=== PATIENT | female | born 1995 | race Caucasian/White ===

== ENCOUNTER 2017-04-16 22:05 | Emergency (ER) | payer MEDICAID, OTHER ==
[2017-04-16 22:39] LABS: Hematocrit 38.3 % (37.0-47.0); Hemoglobin 12.7 gm/dL (12.5-16.0); Mean Cell Volume 85.7 fl (78-100); Mean Corpuscular Hemoglobin 28.4 pg (27-31); Mean Corpuscular Hgb Conc 33.2 g/dl (32-36); Mean Platelet Volume 9.6 fl (6.0-9.5); Neutrophil % 70.3 % (42-75.0); Platelet Count 298 K/mm3 (150-450); Red Blood Count 4.47 M/mm3 (4.2-5.4); Red Cell Distribution Width 13.6 % (11.5-14.0); White Blood Count 18.4 K/mm3 (4.0-10.5)
--- NOTE | 2017-04-16 22:43 | ERNOTE ---
ER Female HPI Stated Complaint: 15 WEEKS - PELVIC PAIN Presenting Symptoms: pelvic pain, vaginal bleeding - "a little more than spotting yesterday, nothing today" Time Seen by Provider: 04/16/17 22:20 Source: patient Exam Limitations: no limitations Immunizations: IMMUNIZATION HX Immunizations Up to Date Yes History of Influenza Vaccine Yes Hx Pneumococcal Vaccination No Allergies/Adverse Reactions: Allergies red dye Allergy (Severe, Verified 09/19/15 10:14) sulfamethoxazole [From Bactrim] Allergy (Severe, Verified 09/19/15 10:14) Anaphylaxis trimethoprim [From Bactrim] Allergy (Severe, Verified 09/19/15 10:14) Anaphylaxis albuterol Allergy (Mild, Verified 04/16/17 22:12) Swelling (Other) sucrose Allergy (Verified 09/19/15 10:14) bleached flour Adverse Reaction (Intermediate, Uncoded 09/19/15 10:14) Nausea Home Medications: HOME MEDICATIONS Cephalexin [Keflex] 500 mg PO QID #40 capsule 04/16/17 [Last Taken Unknown] - History of Present Illness Narrative: G2 P1 presents at 15 wk GA with pelvic pain and back pain Timing: Present: constant Quality: Present: moderate Onset Location: Present: RLQ, LLQ, suprapubic Radiation: Present: back Activities at Onset: Present: none Review of Systems - Review of Systems Constitutional: Present: no symptoms reported EYE: Present: no symptoms reported ENT: Present: no symptoms reported Respiratory: Present: no symptoms reported Gastrointestinal/Abdominal: Absent: nausea, vomiting Genitourinary: Absent: dysuria Musculoskeletal: Present: back pain Skin: Present: no symptoms reported Neurological: Present: no symptoms reported Endocrine: Present: no symptoms reported Hematologic/Lymphatic: Present: no symptoms reported Psych: Present: no symptoms reported - Patient's Past Medical History Patient History - Medical: No pertinent hx Patient History - Cardiac/Respiratory: No pertinent hx Patient History - Cancer: Skin Patient History - Surgical Procedures: T & A Patient History - Other: None LMP (females 10-50): - 15 weeks, - Social History Living Situations: home Abuse History: No History of abuse Psych History: No pertinent hx Does anyone smoke in the home?: Yes Smoking Status: Never smoker Alcohol Use: none Drug Use: none - Immunizations Immunizations Up to Date: Yes Hx Pneumococcal Vaccination: No History of Influenza Vaccine: Yes Physical Exam - Physical Exam General Appearance: Present: wd/wn, alert, no apparent distress Eye Exam: Normal inspection: bilateral Ears, Nose, Throat: Present: normal ENT inspection Neck: Present: normal inspection, nontender, full range of motion Respiratory: Present: no respiratory distress, no accessory muscle use Gastrointestinal/Abdominal: Present: tenderness - suprapubic, LLQ and RLQ. Absent: distended, guarding, rebound Back Exam: Present: other - back pain at bilateral SI and illiolumbar lig. Extremity Exam: Present: normal inspection, no edema Neurological Exam: Present: alert, oriented, normal mood/affect Skin Exam: Present: normal color, warm/dry ED Progress - Results and Orders Patient's Lab Results:: I have reviewed the patient's lab results. Results and Orders: Laboratory Tests 04/16/17 04/16/17 04/16/17 22:35 22:35 22:35 WBC 18.4 H Hgb 12.7 Hct 38.3 Plt Count 298 Sodium 138 Potassium 4.0 Chloride 105 Carbon Dioxide 22.7 L Anion Gap 14.3 H BUN 8 Creatinine 0.53 Est GFR (Non-Af Amer) 158 H D BUN/Creatinine Ratio 15.1 Random Glucose 97 Calcium 9.1 Total Bilirubin 0.1 AST 14 ALT 18 L Alkaline Phosphatase 72 Total Protein 7.3 Albumin 2.8 L Urine Color Urine Appearance Urine pH Ur Specific [place] Urine Protein Urine Glucose (UA) Urine Ketones Urine Blood Urine Nitrate Urine Bilirubin Urine Urobilinogen Ur Leukocyte Esterase Urine RBC Urine WBC Ur Epithelial Cells Urine Bacteria Urine Mucus Urine Culture Comments Maternal Serum HCG 38455 H 04/16/17 22:35 WBC Hgb Hct Plt Count Sodium Potassium Chloride Carbon Dioxide Anion Gap BUN Creatinine Est GFR (Non-Af Amer) BUN/Creatinine Ratio Random Glucose Calcium Total Bilirubin AST ALT Alkaline Phosphatase Total Protein Albumin Urine Color Yellow Urine Appearance Slightly cloudy Urine pH 6.0 Ur Specific [place] 1.025 Urine Protein Negative Urine Glucose (UA) Negative Urine Ketones Negative Urine Blood Negative Urine Nitrate Negative Urine Bilirubin Negative Urine Urobilinogen Normal Ur Leukocyte Esterase 75 H Urine RBC None seen Urine WBC 0-5 Ur Epithelial Cells 10-25 H Urine Bacteria 3+ H Urine Mucus Few - 1+ H Urine Culture Comments Culture to follow Maternal Serum HCG - Vital Signs Patient's Vital Signs:: I have reviewed the patient's vital signs. Vital Signs: Vital Signs 04/16/17 22:13 Temperature 36.9 C Pulse Rate 94 Respiratory 16 Rate Blood Pressure 130/77 O2 Sat by Pulse 98 Oximetry - Progress/Reassessment Chief Complaint: Genitourinary Problem Departure Clinical Impression: Urinary tract infection Qualifiers: Urinary tract infection type: acute cystitis Hematuria presence: without hematuria Qualified Code(s): N30.00 - Acute cystitis without hematuria - Departure Disposition: Home Follow Up Needed Condition: Good Instructions: and Urinary Tract Infection Additional Instructions: See your OB this week to follow up on your symptoms. Referrals: Mike Del Castillo DO [Primary Care Provider] - Prescriptions: Cephalexin [Keflex] 500 mg PO QID #40 capsule
[2017-04-16 22:53] LABS: Urine Bilirubin Negative (NEGATIVE); Urine Blood Negative /ul (NEGATIVE); Urine Ketone Negative (NEGATIVE); Urine Nitrite Negative (NEGATIVE); Urine Protein Negative (NEGATIVE); Urine Specific Gravity 1.025 SP.GR. (1.005-1.010); Urine Urobilinogen Normal (NORMAL)
[2017-04-16 22:54] LABS: Albumin * 2.8 gm/dl (3.4-5.0); Anion Gap 14.3 mmol/L (6.8-13.8); BUN/Creatinine Ratio 15.1 (9.0-21.6); Bilirubin, Total 0.1 mg/dL (0.0-1.1); Ca. Corrected For Albumin 9.7 mg/dL (8.4-10.2); Calcium * 9.1 mg/dL (7.9-10.9); Carbon Dioxide 22.7 mmol/L (24-32.6); Total Protein 7.3 gm/dL (6.2-8.2)
[2017-04-16 23:27] LABS: Urine Appearance Slightly Cloudy; Urine Bacteria 3+; Urine Color Yellow; Urine Mucus Few - 1+; Urine RBC None Seen /hpf (0-5); Urine WBC 0-5 /hpf (0-5)
[2017-04-16] MEDS ORDERED: CEPHALEXIN MONOHYDRATE 250 MG CAPSULE PO ONE (23:48)
[2017-04-16] MEDS ORDERED: CEPHALEXIN MONOHYDRATE 250 MG CAPSULE ONE (23:48)
[2017-04-16 23:57] VITALS: BP 130/92
== END 2017-04-16 23:59 | disposition home or self-care (01) ==
LOC: ER 22:05
DX: N30.00 Acute cystitis without hematuria (principal); Z85.828 Personal history of other malignant neoplasm of skin; Z33.1 Pregnant state, incidental; Z3A.15 15 weeks gestation of pregnancy

== ENCOUNTER 2017-10-01 00:05 | Inpatient (IN) | payer MEDICAID ==
[2017-10-01] MEDS ORDERED: LIDOCAINE HCL 50 ML VIAL PERI PRN (00:23)
[2017-10-01] MEDS ORDERED: RINGER'S SOLUTION,LACTATED 1,000 ML IV ONE (00:23)
[2017-10-01] MEDS ORDERED: OXYTOCIN/DEXTROSE 5%-WATER 30 UNITS/500 ML BAG IV ONE ×2 (00:23→10:05)
[2017-10-01] MEDS ORDERED: DEXTROSE 5%-LACTATED RINGERS 1,000 ML IV PRN (00:23)
[2017-10-01] MEDS ORDERED: ONDANSETRON HCL/PF 2 MG/ML VIAL IV PRN (06:53)
[2017-10-01] MEDS ORDERED: NALOXONE HCL 1 MG/1 ML SYRG IV PRN (06:53)
[2017-10-01] MEDS ORDERED: BUPIVACAINE HCL/0.9 % NACL/PF 250 ML EP PRN (06:53)
[2017-10-01] MEDS ORDERED: fentaNYL CITRATE/PF 50 MCG/ML AMPUL IT SCH (07:00)
--- NOTE | 2017-10-01 07:43 | OR ---
Anesthesia Procedure Note - Anesthesia Procedure Note Narrative: Vital Signs - Last Taken Temp 36.2 C L 10/01/17 07:09 Pulse 92 10/01/17 07:09 Resp 18 10/01/17 07:09 BP 119/58 10/01/17 07:09 Pulse Ox 99 10/01/17 07:09 10/01/17 07:42 ANESTHESIA PROCEDURE NOTE Date of Procedure: 10/01/2017 Time of procedure: 06 02. Performed by: Fabrizio Major CRNA Filament Coil Winder: None. Preprocedure diagnosis: Active labor. Post procedure diagnosis: Same. Procedure: Insertion of labor epidural. Indications: The patient is a 21 -year-old multigravida female in active labor requesting labor epidural for pain management. Findings: See below. Details of the procedure: The patient was placed in a sitting position. Back was prepped with DuraPrep. Patient was then draped in a sterile fashion. Lidocaine 1% was infiltrated to the skin and subcutaneous tissues at the level of the L3 4 interspace. The epidural space was identified using a 18-gauge Tuohy needle with [id number] technique. 20 mcg fentanyl was given intrathecally using a 27 ga. spinal needle. Epidural catheter was inserted without difficulty. Negative test dose was elicited using 5 mL of 1.5% preservative-free lidocaine plus epinephrine 1 200,000. The epidural catheter was then taped and secured in place. EBL: Minimal. Fluids: N/A. Specimen: N/A. Post procedure condition: The patient tolerated the procedure well. No complications were noted. Thank you for this consultation. New CRNA
--- NOTE | 2017-10-01 08:15 | PN ---
Progess Note - Interim Narrative: 10/01/17 08:14 Patient comfortable with epidural Vital signs stable. Pitocin at 6 mu/min. FHT: 130 baseline, reassuring Contractions q 2-3 min Cervix: 8/90/-1, AROM-clear Impression: Intrauterine at 39 weeks induction of labor, progressing well Plan: Anticipate normal spontaneous vaginal delivery within the next hour
[2017-10-01] MEDS ORDERED: BENZOCAINE/MENTHOL 81 SPRAY CAN TP PRN (10:05)
[2017-10-01] MEDS ORDERED: BISACODYL 10 MG SUPP.RECT RC PRN (10:05)
[2017-10-01] MEDS ORDERED: oxyCODONE HCL/ACETAMINOPHEN 1 TAB TABLET PO PRN (10:05)
[2017-10-01] MEDS ORDERED: HYDROCORTISONE 30 APPL TUBE TP PRN (10:05)
[2017-10-01] MEDS ORDERED: SENNOSIDES 8.6 MG TABLET PO PRN (10:05)
[2017-10-01] MEDS ORDERED: GLYCERIN/WITCH HAZEL LEAF 40 APPL BOX TP PRN (10:05)
[2017-10-01] MEDS: DOCUSATE SODIUM 100 MG CAPSULE PO SCH ×2 (10:35→20:46)
--- NOTE | 2017-10-01 11:41 | OR ---
Operative Report - Dictated Report Narrative: Spontaneous vaginal delivery of viable male at 0946 on 10/01/2017 with Apgars 9 and 9, weighing 3610 g in TORREY position with nuchal cord 2. Cord clamping delayed approximately 1 minute Placenta delivered complete, intact, with three vessel cord Estimated blood loss: less than 50 ml Lacerations: None
[2017-10-01] MEDS ORDERED: CALCIUM CARBONATE 500 MG TAB.CHEW PO PRN (13:13)
[2017-10-01] MEDS ORDERED: hydrOXYzine PAMOATE 25 MG CAPSULE PO PRN (13:14)
[2017-10-01] MEDS: oxyCODONE HCL/ACETAMINOPHEN 1 TAB TABLET PO PRN ×2 (13:24→21:30)
[2017-10-01] MEDS: IBUPROFEN 800 MG TABLET PO PRN (18:07)
[2017-10-02] MEDS: PRENATAL VITS96/IRON FUM/FOLIC 1 TAB TABLET PO SCH (08:47)
[2017-10-02] MEDS: IBUPROFEN 800 MG TABLET PO PRN ×2 (08:47→18:59)
[2017-10-02] MEDS: DOCUSATE SODIUM 100 MG CAPSULE PO SCH ×2 (08:47→20:30)
[2017-10-02] MEDS: oxyCODONE HCL/ACETAMINOPHEN 1 TAB TABLET PO PRN ×2 (10:16→18:59)
--- NOTE | 2017-10-02 15:55 | PN ---
Subjective - Date and Time Seen Date: 10/02/17 Time: 15:54 Objective - Vitals Vitals: Last Vital Signs Temp 36.6 C 10/02/17 13:58 Pulse 95 10/02/17 13:58 Resp 18 10/02/17 13:58 BP 127/80 10/02/17 13:58 Pulse Ox 99 10/02/17 13:58 Patient denies complaints. Lochia wnl Abdomen - soft, nontender Uterus - firm, at umbilicus - 1 No calf tenderness Impression: day #1 - s/p spontaneous vaginal delivery. Plan: Continue routine care
[2017-10-03] MEDS: IBUPROFEN 800 MG TABLET PO PRN (08:01)
[2017-10-03] MEDS: oxyCODONE HCL/ACETAMINOPHEN 1 TAB TABLET PO PRN (08:01)
[2017-10-03] MEDS: PRENATAL VITS96/IRON FUM/FOLIC 1 TAB TABLET PO SCH (09:46)
[2017-10-03] MEDS: DOCUSATE SODIUM 100 MG CAPSULE PO SCH (09:46)
[2017-10-03 13:06] VITALS: BP 116/56
--- NOTE | 2017-10-03 16:54 | PN ---
Subjective - Date and Time Seen Date: 10/03/17 Time: 16:53 Objective - Vitals Vitals: Last Vital Signs Temp 36.6 C 10/03/17 08:45 Pulse 96 10/03/17 08:45 Resp 20 10/03/17 08:45 BP 116/56 10/03/17 08:45 Pulse Ox 99 10/03/17 08:45 Patient denies complaints. Lochia wnl Abdomen - soft, nontender Uterus - firm, at umbilicus - 2 No calf tenderness Impression: day #2 - s/p spontaneous vaginal delivery. Anxiety/ depression-stable. Patient desires to refrain from using her antidepressant for now since she seems to feel better off of it. Plan: Routine discharge instructions. depression precautions given.
== END 2017-10-03 11:00 | disposition home or self-care (01) | DRG 775 ==
LOC: OB 00:05 → MS 18:38
PROVIDERS: ADMIT Obstetrics & Gynecology; ATTEND Obstetrics & Gynecology
PROC: 10E0XZZ Delivery of Products of Conception, External Approach (ICD-10-PCS; principal; 2017-10-01)
PROC: 10907ZC Drainage of Amniotic Fluid, Therapeutic from Products of Conception, Via Natural or Artificial Opening (ICD-10-PCS; 2017-10-01)
PROC: 3E0P3VZ Introduction of Hormone into Female Reproductive, Percutaneous Approach (ICD-10-PCS; 2017-10-01)
PROC: 4A1HXCZ Monitoring of Products of Conception, Cardiac Rate, External Approach (ICD-10-PCS; 2017-10-01)
PROC: 00HU33Z Insertion of Infusion Device into Spinal Canal, Percutaneous Approach (ICD-10-PCS; 2017-10-01)
DX: O69.81X0 Labor and delivery complicated by cord around neck, without compression, not applicable or unspecified (principal); O99.344 Other mental disorders complicating childbirth; F32.9 Major depressive disorder, single episode, unspecified; F41.1 Generalized anxiety disorder; Z3A.39 39 weeks gestation of pregnancy; Z37.0 Single live birth